=== PATIENT | female | born 1985 ===

== ENCOUNTER 2023-04-10 14:43 | Emergency (ER) | payer MEDICAID ==
[~2023-04-10] VITALS: Ht 162.6 cm; Wt 58.2 kg
[2023-04-10] MEDS: MORPHINE SULFATE 2 MG/ML SYRINGE IVP ONE ×3 (15:11→16:17)
[2023-04-10] MEDS: SODIUM CHLORIDE 0.9% 1,000 ML IV ONE (15:11)
[2023-04-10 15:56] LABS: BASOPHILS % (AUTO) 0.6 % (0.0-2.0); HEMATOCRIT 38.9 % (36-46); HEMOGLOBIN 13.1 g/dL (12.0-16.0); LYMPHOCYTES # (AUTO) 1.9 K/uL (1.0-4.8); LYMPHOCYTES % (AUTO) 27.5 % (22.0-44.0); MEAN CORPUSCULAR HEMOGLOBIN 29.9 pg (26.0-34.0); MEAN CORPUSCULAR HGB CONC 33.6 G/dL (31.0-37.0); MEAN CORPUSCULAR VOLUME 89 fL (80-100); MONOCYTES # (AUTO) 0.4 K/uL (0.1-1.0); MONOCYTES % (AUTO) 5.8 % (2.0-9.0); NEUTROPHILS # (AUTO) 4.5 K/uL (1.8-7.7); NEUTROPHILS % (AUTO) 65.1 % (40.0-70.0); PLATELET COUNT (AUTO) 279 K/uL (150-450); RED BLOOD CELL COUNT(AUTO) 4.37 MIL/uL (4.00-5.20); RED CELL DISTRIBUTION WIDTH 13.3 % (11.5-14.5); WHITE BLOOD COUNT (AUTO) 6.9 K/uL (4.5-11.0)
[2023-04-10] MEDS: METOCLOPRAMIDE HCL 5 MG/ML 2 ML VIAL IVP ONE (16:00)
[2023-04-10 16:02] LABS: ANION GAP 15 mmol/L (8-16); CALCIUM, TOTAL 9.2 mg/dL (8.8-10.5); CARBON DIOXIDE 22 mmol/L (22-29); CHLORIDE 99 mmol/L (98-107); CREATININE 0.78 mg/dL (0.60-1.30); GLOMERULAR FILTR. RATE CALC > 60 mL/min (>60); GLUCOSE,RANDOM 109 mg/dL (70-110); POTASSIUM 3.3 mmol/L (3.5-5.1); SODIUM SERUM 136 mmol/L (136-145); UREA NITROGEN, BLOOD 15 mg/dL (7-18)
[2023-04-10 16:05] VITALS: O2SAT 99
[2023-04-10 16:08] LABS: ALANINE AMINOTRANSFERASE 16 U/L (12-78); ALBUMIN 4.2 g/dL (3.4-5.0); ALKALINE PHOSPHATASE 68 U/L (46-116); ASPARTATE AMINOTRANSFERASE 25 U/L (15-37); BILIRUBIN,TOTAL 0.3 mg/dL (0.1-1.0); TOTAL PROTEIN, SERUM 7.8 g/dL (6.4-8.2)
[2023-04-10] MEDS: MIDAZOLAM HCL 2 MG/2 ML VIAL IVP ONE ×2 (16:11→16:21)
[2023-04-10] MEDS ORDERED: TRAM-559 PO (17:56)
[2023-04-10 18:42] VITALS: BP 119/68; PULSE 77; RESP 18; TEMP 98.5
== END 2023-04-10 19:47 | disposition home or self-care (01) ==
LOC: EMS 14:50
DX: S93.04XA Dislocation of right ankle joint, initial encounter (principal); W19.XXXA Unspecified fall, initial encounter; Y93.89 Activity, other specified; Y92.89 Other specified places as the place of occurrence of the external cause; Y99.8 Other external cause status
CPT/HCPCS: 99291; 27840; 96360; 80053; 84703; 85025; 36415; 73610; 73630; 99152; J2250; J2270; J7030